=== PATIENT | female | born 1995 | race African-American/Black ===

== ENCOUNTER → 2017-02-20 01:22 | Emergency (ER) | payer BC, MEDICARE, MEDICAID ==
[~2017-02-20 01:22] MED LIST: Iohexol 300* (CONTRAST) 10 ML SDV IV ONE; Meperidine SYRINGE* 50 MG/ML ONE; Midazolam* 1 MG/ML 10 ML VIAL (10 MG) ONE; NS 0.9% 1000 ML* 1,000 ML BOLUS ONE; NS 0.9% 1000 ML* 1,000 ML IV ONE; Ondansetron INJ* 2 MG/ML VIAL IV ONE; Ondansetron INJ* 2 MG/ML VIAL ONE
[2017-02-20 05:22] LABS: Hematocrit 40 % (35-47); Mean Corpuscular HGB Conc 33 g/dl (31-36); Mean Corpuscular Hemoglobin 26 pg (27-31); Mean Corpuscular Volume 81 fL (80-97); Mean Platelet Volume 9 um3 (7.4-10.4); Red Blood Count 4.93 10^6/ul (4.0-5.4); Red Cell Distribution Width 15 % (10.5-15); White Blood Count 6.3 10^3/ul (3.5-10.8)
[2017-02-20 05:43] LABS: ALT 17 U/L (7-52); Alkaline Phosphatase 52 U/L (34-104); BUN/Creatinine Ratio 16.9 (8-20); Blood Urea Nitrogen 13 mg/dL (6-24); CO2 Carbon Dioxide 26 mmol/L (22-32); Calcium 9.3 mg/dL (8.6-10.3); Chloride 99 mmol/L (101-111); EGFR African American 119.5 (>60); EGFR Non-African American 92.9 (>60); Glucose 93 mg/dL (70-100); Sodium 134 mmol/L (133-145)
--- NOTE | 2017-02-20 08:18 | RAD ---
INDICATION: Abdominal pain. Diarrhea. Bloody stools. COMPARISON: None TECHNIQUE: Axial source images were obtained from the hemidiaphragms to the symphysis pubis following administration of oral and intravenous contrast. 150 mL Omnipaque 300 was utilized. Coronal and sagittal reconstructed images were acquired. Lung bases: The lung bases are clear. Liver: The liver is normal in size. There are no masses. There is no ductal dilatation. Gallbladder: There are no calcified gallstones. There is no evidence of wall thickening or pericholecystic fluid. Spleen: The spleen is normal in size. There are no masses. Pancreas: There is no focal pancreatic mass or ductal dilatation. Adrenal glands: There is no evidence of adrenal mass. Kidneys: The kidneys are normal in size and position. There are prompt nephrograms and there is prompt excretion bilaterally. There are no renal parenchymal masses. There is no evidence of nephrolithiasis. Adenopathy: There is no evidence of adenopathy by size criteria but there there is mild lymph node prominence in the right lower quadrant which likely reflects reactive nodes. Fluid collections: There are no free or localized fluid collections. Vessels:There are no significant atherosclerotic changes involving the aorta. There is no focal aneurysm. The iliac vessels are normal in caliber. The IVC appears normal. GI tract: The upper GI tract is unremarkable. There is mild haustral thickening along the descending colon and there is mild mucosal edema about the rectum and distal sigmoid colon suggestive of colitis. The appendix is normal. Pelvic organs: The uterus and adnexa appear normal Bladder: There are no bladder masses. Abdominal and pelvic soft tissues: Small periumbilical hernia containing fat. Osseous structures: There are no acute osseous findings. Other: None IMPRESSION: CT FINDINGS SUGGEST THE POSSIBILITY OF A COLITIS. NO OBSTRUCTION OR PERFORATION.
--- NOTE | 2017-02-20 09:09 | ED ---
Amanda Masters Rebecca, scribed for Maribeth Moya MD on 02/20/17 at 0327 . Abdominal Pain/Female - HPI Summary HPI Summary: Pt is a 21 y/o F who presents to the ED accompanied by her mother with a CC of abd pain. Pain began today at 0000 and have been constant since onset. Pain is in the lower abdomen (RLQ and LLQ), characterized as cramping and is currently mild (note: on triage, pt ranked 7/10, on evaluation, pt reported pain as mild) . Sx aggravated and alleviated by nothing. Additionally c/o intermittent diarrhea, bloating and nausea for 6 weeks. 4 days ago, pt additionally experienced constipation for 3 days, which was resolved by a home enema. Additionally c/o diarrhea with blood at 2330 last night that was blood mixed with stool, but is now just blood. Has had 3 episodes of bloody diarrhea. Denies vomiting. Recently was on 2 rounds of Abx - one for an ear infection and the other for a sinus infection. The last antibiotic was 2 weeks ago. Mother notes a recent dietary change to a diet with more fiber than she previously consumed. Last ate at 2030 which was Syed noodles. Foundry Technician is Dr. Jones at [facility]. LNMP 02/13/2017. Pt has hx of lupus and rheumatoid arthritis, is on methotrexate and plaquenil and has taken large doses of NSAIDS. - History of Current Complaint Chief Complaint: EDAbdPain Stated Complaint: BLOODY STOOL Time Seen by Provider: 02/20/17 03:14 Hx Obtained From: Patient, Family/Commissioned Security Officer - mother Hx Last Menstrual Period: 02/13/2017 ?: No Onset/Duration: Sudden Onset, Still Present Timing: Constant Severity Initially: Moderate Severity Currently: Mild Pain Intensity: 3 Pain Scale Used: 0-10 Numeric Location: Discrete At: RLQ, Discrete At: LLQ Radiates: No Character: Cramping Aggravating Factor(s): Nothing Alleviating Factor(s): Nothing Associated Signs and Symptoms: Positive: Constipation, Blood in Stool, Nausea, Diarrhea, Other: - Abdominal bloating. Negative: Vomiting Allergies/Adverse Reactions: Allergies Allergy/AdvReac Type Severity Reaction Status Date / Time Shellfish Allergy Allergy Rash And Verified 02/20/17 03:37 Itching Sulfa Antibiotics Allergy Hives Verified 02/20/17 03:37 Home Medications: Home Medications Hydroxychloroquine TAB* [Plaquenil TAB*] 200 mg PO BID 02/20/17 [History Confirmed 02/20/17] Methotrexate TAB* 20 mg PO Q7D 02/20/17 [History Confirmed 02/20/17] Multiple Vitamins W/ Minerals [Multivitamin Adults] 1 tab PO DAILY 02/20/17 [ History Confirmed 02/20/17] PMH/Surg Hx/FS Hx/Imm Hx Previously Healthy: No Endocrine/Hematology History: Reports: Hx Systemic Lupus Erythematosus Cardiovascular History: Denies: Hx Pacemaker/ICD Musculoskeletal History: Reports: Hx Rheumatoid Arthritis Infectious Disease History: No Infectious Disease History: Denies: History Other Infectious Disease, Traveled Outside the [place] in Last 30 Days - Family History Known Family History: Positive: Other - lupus and RA in mother Family History: mother with Lupus/RA - Social History Lives: With Family Alcohol Use: Rare Substance Use Type: Reports: None Smoking Status (MU): Never Smoked Tobacco Review of Systems Constitutional: Negative Cardiovascular: Negative Respiratory: Negative Positive: Abdominal Pain - RLQ and LLQ, Diarrhea, Nausea, Other - 3 episodes of bloody diarrhea; abdominal bloating. Negative: Vomiting Positive: other - constipation (resolved) Musculoskeletal: Negative Skin: Negative Neurological: Negative Psychological: Normal All Other Systems Reviewed And Are Negative: Yes Physical Exam - Summary Physical Exam Summary: Rectal exam findings: One small external hemorrhoid without pain to palpation. Bright red blood and minimal stool in the rectum. Triage Information Reviewed: Yes Vital Signs On Initial Exam: Initial Vitals Temp Pulse Resp BP Pulse Ox 98 F 87 18 132/84 100 02/20/17 01:28 02/20/17 01:28 02/20/17 01:28 02/20/17 01:28 02/20/17 01:28 Vital Signs Reviewed: Yes Appearance: Positive: Ill-Appearing - Mild, Pain Distress, Obese Skin: Positive: Warm, Skin Color Reflects Adequate Perfusion, Dry Eyes: Positive: Conjunctiva Clear ENT: Positive: Normal ENT inspection Neck: Positive: Supple Respiratory/Lung Sounds: Positive: Clear to Auscultation, Breath Sounds Present , Other - No respiratory distress Cardiovascular: Positive: RRR, Other - Brisk capillary refill, pulses normal. Negative: Murmur Abdomen Description: Positive: Nontender, No Organomegaly, Soft. Negative: Bruit, CVA Tenderness (R), CVA Tenderness (L), Distended, Guarding, Hernia @, McBurney's Point Tenderness, Peritoneal Signs, Pulsatile Mass Musculoskeletal: Positive: Strength/ROM Intact. Negative: Edema Left, Edema Right Neurological: Positive: Alert, Oriented to Person Place, Time, Other - Muscle tone normal. Negative: Facial Droop, Focal Deficit @, Slurred Speech Psychiatric: Positive: Normal Diagnostics - Vital Signs Vital Signs Temp Pulse Resp BP Pulse Ox 02/20/17 01:28 98 F 87 18 132/84 100 - Laboratory Lab Results: Lab Results 02/20/17 02/20/17 02/20/17 Range/Units 05:00 05:00 05:00 WBC 6.3 (3.5-10.8) 10^3/ul RBC 4.93 (4.0-5.4) 10^6/ul Hgb 13.0 (12.0-16.0) g/dl Hct 40 (35-47) % MCV 81 (80-97) fL MCH 26 L (27-31) pg MCHC 33 (31-36) g/dl RDW 15 (10.5-15) % Plt Count 236 (150-450) 10^3/ul MPV 9 (7.4-10.4) um3 Neut % (Auto) 51.1 (38-83) % Lymph % (Auto) 35.8 (25-47) % [place] % (Auto) 11.1 H (1-9) % Eos % (Auto) 1.1 (0-6) % Baso % (Auto) 0.9 (0-2) % Absolute Neuts (auto) 3.2 (1.5-7.7) 10^3/ul Absolute Lymphs (auto) 2.3 (1.0-4.8) 10^3/ul Absolute Monos (auto) 0.7 (0-0.8) 10^3/ul Absolute Eos (auto) 0.1 (0-0.6) 10^3/ul Absolute Basos (auto) 0.1 (0-0.2) 10^3/ul Absolute Nucleated RBC 0 10^3/ul Nucleated RBC % 0 INR (Anticoag Therapy) 1.05 (0.89-1.11) APTT 31.3 (26.0-36.3) seconds Sodium (133-145) mmol/L Potassium Chloride (101-111) mmol/L Carbon Dioxide (22-32) mmol/L Anion Gap BUN (6-24) mg/dL Creatinine (0.51-0.95) mg/dL Est GFR ( Amer) (>60) Est GFR (Non-Af Amer) (>60) BUN/Creatinine Ratio (8-20) Glucose (70-100) mg/dL Calcium (8.6-10.3) mg/dL Total Bilirubin (0.2-1.0) mg/dL AST ALT (7-52) U/L Alkaline Phosphatase (34-104) U/L Total Protein (6.4-8.9) g/dL Albumin (3.2-5.2) g/dL Globulin (2-4) g/dL Albumin/Globulin Ratio (1-3) Blood Type A Positive Antibody Screen Negative 02/20/17 Range/Units 05:00 WBC (3.5-10.8) 10^3/ul RBC (4.0-5.4) 10^6/ul Hgb (12.0-16.0) g/dl Hct (35-47) % MCV (80-97) fL MCH (27-31) pg MCHC (31-36) g/dl RDW (10.5-15) % Plt Count (150-450) 10^3/ul MPV (7.4-10.4) um3 Neut % (Auto) (38-83) % Lymph % (Auto) (25-47) % [place] % (Auto) (1-9) % Eos % (Auto) (0-6) % Baso % (Auto) (0-2) % Absolute Neuts (auto) (1.5-7.7) 10^3/ul Absolute Lymphs (auto) (1.0-4.8) 10^3/ul Absolute Monos (auto) (0-0.8) 10^3/ul Absolute Eos (auto) (0-0.6) 10^3/ul Absolute Basos (auto) (0-0.2) 10^3/ul Absolute Nucleated RBC 10^3/ul Nucleated RBC % INR (Anticoag Therapy) (0.89-1.11) APTT (26.0-36.3) seconds Sodium 134 (133-145) mmol/L Potassium TNP Chloride 99 L (101-111) mmol/L Carbon Dioxide 26 (22-32) mmol/L Anion Gap TNP BUN 13 (6-24) mg/dL Creatinine 0.77 (0.51-0.95) mg/dL Est GFR ( Amer) 119.5 (>60) Est GFR (Non-Af Amer) 92.9 (>60) BUN/Creatinine Ratio 16.9 (8-20) Glucose 93 (70-100) mg/dL Calcium 9.3 (8.6-10.3) mg/dL Total Bilirubin 0.40 (0.2-1.0) mg/dL AST TNP ALT 17 (7-52) U/L Alkaline Phosphatase 52 (34-104) U/L Total Protein 8.0 (6.4-8.9) g/dL Albumin 4.0 (3.2-5.2) g/dL Globulin 4.0 (2-4) g/dL Albumin/Globulin Ratio 1.0 (1-3) Blood Type Antibody Screen Result Diagrams: 02/20/17 05:00 02/20/17 05:00 Lab Statement: Any lab studies that have been ordered have been reviewed, and results considered in the medical decision making process. Abdominal Pain Fem Course/Dx - Course Course Of Treatment: Pt is a 21 y/o F, accompanied by her mother, c/o lower abdominal pain since 0000 and 3 episodes of diarrhea with blood since 2330. Additionally c/o intermittent diarrhea, bloating and nausea for the past 6 weeks with a 3 day stint of constipation recently, relieved by a home enema. Notes 2 recent courses of Abx, with the last dose being 2 weeks ago. Pt's hx is complicated by immunosuppression for her RA and lupus. Pt medications reviewed this visit. Allergies noted. Pt will be signed out to Dr. Ramirez, pending dispo, awaiting CT Abd/pel read. - Diagnoses Differential Diagnosis: Positive: Bowel Obstruction, Constipation, Diverticulitis, Hepatitis, Other - colitis, c diff colitis, infectious enteritis Provider Diagnoses: Bloody diarrhea, Abdominal pain Discharge - Discharge Plan Condition: Good Disposition: OTHER Discharge Disposition Comment: Pt will be signed out to Dr. Ramirez, pending dispo , awaiting CT Abd/Pel Referrals: Garfield Cintron MD [Primary Care Provider] - The documentation as recorded by the Amanda cage Rebecca accurately reflects the service I personally performed and the decisions made by me, Maribeth Moya MD.
[2017-02-20 11:25] LABS: C Reactive Protein 18.78 mg/L (< 5.00)
[2017-02-20 13:52] LABS: Erythrocyte Sed Rate 23 mm/Hr (0-14)
[2017-02-20 15:01] VITALS: BP 107/62
--- NOTE | 2017-02-20 17:54 | ED ---
Jono Masters Billy, scribed for Mickey Ramirez MD on 02/20/17 at 0804 . Progress - Progress Note Progress Note: Patient signed out by Dr. Moya at shift change. She is here in the ED for evaluation of bloody diarrhea. At time of evaluation, the patient states that she feels fine and denies any pain, nausea, or vomiting. P/E: VITAL SIGNS: Reviewed. GENERAL: Patient is an obese female who is lying comfortable in the stretcher. Patient is not in any acute respiratory distress. HEAD AND FACE: Normocephalic and atraumatic. EYES: PERRLA, EOMI x 2, No injected conjunctiva. EARS: Hearing grossly intact. Ear canals and tympanic membranes are WNL. MOUTH: Oropharynx within normal limits. NECK: Supple, trachea is midline, no adenopathy, no JVD. CHEST: Symmetric, no tenderness at palpation LUNGS: Clear to auscultation bilaterally. No wheezing or crackles. CVS: RRR,, S1 and S2 present, no murmurs or gallops appreciated. ABDOMEN: Soft, non-tender. No signs of distention. Positive bowel sounds. No rebound no guarding, and no masses palpated. No abdominal bruit or pulsations. EXTREMITIES: FROM in all major joints, no edema, no cyanosis or clubbing. NEURO: Alert and oriented x 3. No acute neurological deficits. Speech is normal. SKIN: Dry and warm - Results/Orders Results/Orders: CT ABD/PEL: CT FINDINGS SUGGEST THE POSSIBILITY OF A COLITIS. NO OBSTRUCTION OR PERFORATION. Re-Evaluation - Re-Evaluation First Eval Re-Evaluation Time: 07:46 Change: Improved Comment: No pain, nausea, or vomiting. Second Eval Re-Evaluation Time: 09:43 Course/Dx - Course Course Of Treatment: She is here in the ED for evaluation of bloody diarrhea. At time of evaluation, the patient states that she feels fine and denies any pain, nausea, or vomiting. This patient was signed out by Dr. Moya to follow up with the CT of the abd/pel, which suggested the possibility of colitis. At that time, I discussed the case with Dr. Friedman who recommended to keep the patient in the ED until he could perform the sigmoidoscopy. That was done, and after the sigmoidoscopy, the patient wad discharged to follow up with him at his office. She is A&Ox3, hemodynamically stable. - Diagnoses Provider Diagnoses: Bloody diarrhea, Abdominal pain, Colitis - Provider Notifications Discussed Care Of Patient With: Dr. Friedman (GI) at 0940: he will see the patient in the ED at around [phone]. Discharge - Discharge Plan Condition: Stable Disposition: HOME Patient Education Materials: Colitis (ED) Referrals: Garfield Cintron MD [Primary Care Provider] - The documentation as recorded by the Jono cage Billy accurately reflects the service I personally performed and the decisions made by me, Mickey Ramirez MD.
--- NOTE | 2017-02-20 23:32 | CONS ---
Gastroenterology Consult DATE: 02/20/17 - EMERGENCY DEPT CONSULTING PHYSICIAN: Maribeth Moya, [facility] [place] room. REASON FOR CONSULTATION: Bowel habit irregularity and then bleeding noted last night with CT scan interpreted as showing colonic thickening involving many areas including the sigmoid and rectum. 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 She would have intermittent diarrhea and be normal in between. She had been changing her diet towards eating more salads to try to lose weight. She has had some success, but is unsure how much. There is a little bit more diarrhea a week ago, but then she had 3 days where she did not go at all and she purchased some MiraLAX and also suppository. After the suppository, she had a normal stool the next day and that was on 02/18/17. Three days of not going at all were the end of last week. Then, yesterday evening, she began having more crampy lower abdominal discomfort. It was symmetric and then, she had a bowel movement with some blood around 11:30 p.m. She contacted her mother and was brought to the emergency room around 1:20 a.m. Since arrival in the emergency room, she has had another stool that had less blood, but at the time of my exam, she had not gone for about 5 hours. She also described her symptoms over the last month or two as including bloating and nausea. 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 She is not noted on any GI medications. PAST MEDICAL HISTORY: 1. Juvenile rheumatoid arthritis with lupus crossover - she is followed by Dr. Yolanda Jones at [facility] who she saw first at age 16 and fairly soon was placed on methotrexate and she also takes hydroxychloroquine. At one point, there was question of left leg pain and although per her report, DVT was not found on an ultrasound. Studies were done and she is said to have antiphospholipid antibody syndrome. There has been no definite blood clot anywhere else. She has a followup appointment with Dr. Jones in 6 days. 2. Morbid obesity. MEDICATIONS: She currently takes Mobic daily at , hydroxychloroquine, methotrexate 20 mg weekly, multivitamin with minerals, and aspirin 81 mg. ALLERGIES: She is allergic to SHELLFISH and SULFA ANTIBIOTICS. SOCIAL HISTORY: She was born and raised in [facility], attending [employer]. Her mother is disabled, wheelchair confined. She goes to [employer] though is not slated to graduate this month. REVIEW OF SYSTEMS: No history of syncope, valvular disease, TB, opportunistic infections, hepatitis, jaundice, or colitis. No history of gynecologic problems. Hepatitis C antibody was negative in 2014 and QuantiFERON gold and tuberculosis test negative in 2011. Syphilis IgG antibody negative, January 2015. PHYSICAL EXAM: She is a very substantially overweight dark complected young woman, in no overt distress at this time. She is a little tired having been up all night. HEENT exam is unremarkable. She has no adenopathy. Her lungs are clear and heart sounds are normal. Breast and pelvic exams are deferred. The abdomen is obese and symmetric with normal bowel sounds. It is soft and without focal tenderness. Perianal inspection and rectal are normal with no mucus or fluids obtained. Extremities are symmetric, obese, and without warmth. Neurologic is nonfocal. DIAGNOSTIC STUDIES/LAB DATA: Hemoglobin 13.0, hematocrit 40, MCV 81, white count 6.3, and platelets 236. The MCV has slowly drifted down over the last 5 years from 84 to 86 to current 81. Sed rate is 23, quite in line with previous results. CRP 18.78, slightly higher than a few recent values at 14 and 12. Stool occult blood today at 4 a.m. negative. Stool cultures pending. IMPRESSION: This 21-year-old young woman being treated for rheumatologic illness over 5 years on methotrexate had a history over a month or possibly a little more sounding fairly typical for a functional bowel issue as there was no new alarm symptom as she was having a generalized lower discomfort and intermittent diarrhea. The occurrence of 3 days running without a bowel movement at all pretty much cinches irritable bowel syndrome as being part of her clinical picture. The fact that she saw blood last night would be most likely a functional effect of a cycling of irritable bowel though course it does raise the issue of whether it could be a proctitis, a small polyp, or just some other random intercurrent illness. CT scan suggesting generalized thickening of the colon wall makes a little less comfortable to say this is functional disease based on clinical criteria alone. Sigmoidoscopy even though it is unprepped is likely to be quite helpful and is planned. If generally intact normal rectosigmoid mucosa is seen, a fiber supplement and p.r.n. MiraLAX will likely be used. Her mother asked whether her medications could be causing this and particular about her antiinflammatories. She has been on Mobic for a year and a half, so any idiosyncratic NSAID reaction is unlikely at this point. [id number]/[facility] #: [id number] [facility]
--- NOTE | 2017-02-21 04:16 | PRO ---
DATE: 02/20/17 - EMERGENCY DEPT REFERRING PHYSICIANS: Maribeth Moya ; Garfield Cintron * PROCEDURE: Flexible sigmoidoscopy to proximal sigmoid and biopsy of rectosigmoid erythema. 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 She had some urgency and lower abdominal pain and rectal bleeding last night. There has been no fever. See separate consult. Informed consent was obtained from the patient with her parents in the emergency room, room 19. CT scan had showed thickening of the bowel wall. ENDOSCOPIST: Dr Friedman MEDICATION: Midazolam 5, meperidine 50. FINDINGS: She is a substantially overweight young woman, in no overt distress. Perianal inspection shows no cutaneous abnormalities in the rectum. Digital rectal was normal. Initial views show intact rectal mucosa with no bleeding. The vascular pattern is evident. There is a little bit of splotchy erythema in the proximal rectum and rectosigmoid. There are no erosions and no aphthoid lesions. The changes are mild and nonspecific. The lower and mid rectum are normal. Formed stool is present in a nodular pattern. There is a fair amount in the rectum and rectosigmoid and then in the upper sigmoid, there is less and the tubular sigmoid is well seen. The mid upper sigmoid is entirely normal with no erythema and no abnormality whatsoever. On slow withdrawal, the distribution of the mild erythema from about 10 to 20 cm was re-confirmed. Three biopsies were taken for future reference. IMPRESSION: 1. Mild nonspecific rectosigmoid erythema. 2. Bowel habit changes - suggestive of irritable bowel syndrome and the presence of formed stool confirms that. She is asked to take psyllium 1 to 2 caplets a day and use MiraLAX (the patient had actually purchased it a week ago ) h.s. if she skips a day. The actual source of the bleeding is not entirely clear, but it was mild, it has only occurred once, and her CBC is normal. Most likely, small rectal vessels have been traumatized, although the erythema might have bled. There is clearly not any sign of proximal bleeding. 3. CT finding of thickened bowel - appears to be a false positive as clearly the formed and indeed firm and desiccated stool coming from above indicate fine physiologic functioning of the colon in general. Whether the patient could have a very minimal proctitis underlying her current situation is unclear. Most likely, it is a transient cause to the erythema. [id number]/[facility] #: [id number] [facility] HOSPITALIrma
--- NOTE | 2017-02-21 14:24 | ED ---
Progress - Progress Note Progress Note: Patient had a positive stool cCx for salmonella. UTD recommends tx with cipro 500 mg 2x day for 3-7 days for high risk patients. It is felt that this patient is a high risk because of the prolonged symptoms, bloody stools and her being treated with methotrexate for RA.. I contacted the patient at home, discussed results with her and mother, answered questions and patient agrees to be treated with Cipro 500 mg PO BID for 5 days. [facility] Re-Evaluation - Re-Evaluation First Eval Re-Evaluation Time: 07:46 Change: Improved Comment: No pain, nausea, or vomiting. Second Eval Re-Evaluation Time: 09:43 Course/Dx - Course Course Of Treatment: She is here in the ED for evaluation of bloody diarrhea. At time of evaluation, the patient states that she feels fine and denies any pain, nausea, or vomiting. This patient was signed out by Dr. Moya to follow up with the CT of the abd/pel, which suggested the possibility of colitis. At that time, I discussed the case with Dr. Friedman who recommended to keep the patient in the ED until he could perform the sigmoidoscopy. That was done, and after the sigmoidoscopy, the patient wad discharged to follow up with him at his office. She is A&Ox3, hemodynamically stable. - Diagnoses Provider Diagnoses: Bloody diarrhea, Abdominal pain, Colitis - Provider Notifications Discussed Care Of Patient With: Dr. Friedman (GI) at 0940: he will see the patient in the ED at around [phone].
== END | disposition home or self-care (01) ==
LOC: ED 01:22
DX: R10.9 Unspecified abdominal pain (principal); K52.9 Noninfective gastroenteritis and colitis, unspecified; K92.1 Melena
CPT/HCPCS: 36415; 74177; 80053; 82272; 85025; 85610; 85652; 85730; 86140; 86850; 86900; 86901; 87045; 87046; 87077; 87328; 87329; 87493; 87899; 88305; 99283; J2250; J2405; Q9967

== ENCOUNTER 2018-04-16 09:58 | Emergency (ER) | payer BC, MEDICARE, MEDICAID ==
[2018-04-16 10:48] VITALS: BP 143/86
--- NOTE | 2018-04-16 10:55 | UC ---
Throat Pain/Nasal Zhang HPI - History of Current Complaint Chief Complaint: UCGeneralIllness Stated Complaint: FEVER,CONGESTION,ST Time Seen by Provider: 04/16/18 10:50 Hx Obtained From: Patient - nasal congestion, sense of fullness in ears, sore throat Hx Last Menstrual Period: due now ?: No Onset/Duration: Lasting Days Severity: Mild Pain Intensity: 0 Associated Signs & Symptoms: Positive: Negative - Epiglottits Risk Factors Epiglottis Risk Factors: Negative - Allergies/Home Medications Allergies/Adverse Reactions: Allergies Allergy/AdvReac Type Severity Reaction Status Date / Time shellfish derived Allergy Intermediate Rash And Verified 04/16/18 10:48 Itching Sulfa (Sulfonamide Allergy Intermediate Hives Verified 04/16/18 10:48 Antibiotics) PMH/Surg Hx/FS Hx/Imm Hx Previously Healthy: No - hx. of lupus , on immunosuppresives - Surgical History Surgical History: None - Family History Known Family History: Positive: None, Other - lupus and RA in mother Family History: mother with Lupus/RA - Social History Alcohol Use: Rare Substance Use Type: None Smoking Status (MU): Never Smoked Tobacco - Immunization History Most Recent Influenza Vaccination: july 2016 Most Recent Tetanus Shot: utd Review of Systems Constitutional: Chills Skin: Negative Eyes: Negative ENT: Sore Throat, Ear Ache, Nasal Discharge Respiratory: Negative Cardiovascular: Negative Gastrointestinal: Negative Genitourinary: Negative Motor: Negative Neurovascular: Negative Musculoskeletal: Negative Neurological: Negative Psychological: Negative Is Patient Immunocompromised?: Yes All Other Systems Reviewed And Are Negative: Yes Physical Exam Triage Information Reviewed: Yes Appearance: Well-Appearing Vital Signs: Initial Vital Signs Temp 36.8 C 04/16/18 10:43 Pulse 69 04/16/18 10:43 Resp 18 04/16/18 10:43 BP 143/86 04/16/18 10:43 Pulse Ox 100 04/16/18 10:43 Vital Signs Reviewed: Yes Eye Exam: Normal Eyes: Positive: Conjunctiva Clear ENT Exam: Normal ENT: Positive: Normal ENT inspection Dental Exam: Normal Neck exam: Normal Respiratory Exam: Normal Respiratory: Positive: Chest non-tender Cardiovascular Exam: Normal Abdominal Exam: Normal Abdomen Description: Positive: Nontender Musculoskeletal Exam: Normal Neurological Exam: Normal Psychological Exam: Normal Throat Pain/Nasal Course/Dx - Differential Dx/Diagnosis Provider Diagnoses: URI Discharge - Sign-Out/Discharge Documenting (check all that apply): Patient Departure - Discharge Plan Condition: Good Disposition: HOME Referrals: Brianda Chavira MD [Primary Care Provider] - - Billing Disposition and Condition Condition: GOOD Disposition: Home
== END 2018-04-16 11:00 | disposition home or self-care (01) ==
LOC: UCCORT 09:58
DX: J06.9 Acute upper respiratory infection, unspecified (principal); Z88.2 Allergy status to sulfonamides
CPT/HCPCS: 99211; G0463

== ENCOUNTER 2019-09-25 15:26 | Emergency (ER) | payer BC, MEDICARE, MEDICAID ==
[2019-09-25 15:51] VITALS: BP 150/87
[2019-09-25 16:23] LABS: Influenza A Molecular NEGATIVE (Negative); Influenza B Molecular NEGATIVE (Negative)
--- NOTE | 2019-09-25 16:30 | UC ---
FLU HPI - HPI Summary HPI Summary: Flu-like symptoms with body aches, runny nose, no fever, no sore throat. Pt states because she is immune suppressed she usually gets an antibiotic. - History of Current Complaint Chief Complaint: UCRespiratory Stated Complaint: COUGH/FEVER/CHILLS/ACHY/NAUSEA Time Seen by Provider: 09/25/19 16:16 Hx Obtained From: Patient Hx Last Menstrual Period: 08/17/19 ?: No Onset/Duration: Gradual Onset Severity Currently: Mild Severity Initially: Mild Pain Intensity: 5 Associated Signs & Symptoms: Positive: Fever - Feels like she's had a fever at home but none documented, Myalgia, Nasal Congestion - Allergy/Home Medications Allergies/Adverse Reactions: Allergies Allergy/AdvReac Type Severity Reaction Status Date / Time shellfish derived Allergy Intermediate Rash And Verified 09/25/19 15:46 Itching Sulfa (Sulfonamide Allergy Intermediate Hives Verified 09/25/19 15:46 Antibiotics) Home Medications: Home Medications predniSONE TAB* [Deltasone 10 MG TAB*] 10 mg PO DAILY 09/25/19 [History Confirmed 09/25/19] PMH/Surg Hx/FS Hx/Imm Hx - Additional Past Medical History Additional PMH: hx lupus Previously Healthy: Yes - Surgical History Surgical History: None - Family History Known Family History: Positive: None, Other - lupus and RA in mother Family History: mother with Lupus/RA - Social History Lives: With Family Alcohol Use: Rare Substance Use Type: None Smoking Status (MU): Never Smoked Tobacco - Immunization History Most Recent Influenza Vaccination: july 2016 Most Recent Tetanus Shot: utd Review of Systems All Other Systems Reviewed And Are Negative: Yes Constitutional: Positive: Chills, Fatigue ENT: Positive: Nasal Discharge Musculoskeletal: Positive: Myalgia Is Patient Immunocompromised?: Yes - R/A, lupus Physical Exam Triage Information Reviewed: Yes Appearance: Well-Appearing, No Pain Distress, Well-Nourished Vital Signs: Initial Vital Signs Temp 98.6 F 09/25/19 15:47 Pulse 112 09/25/19 15:47 Resp 20 09/25/19 15:47 BP 150/87 09/25/19 15:47 Pulse Ox 100 09/25/19 15:47 Vital Signs Reviewed: Yes Eyes: Positive: Conjunctiva Clear ENT: Positive: Pharynx normal, Nasal congestion, Nasal drainage - Clear nasal coryza, TMs normal, Uvula midline. Negative: Tonsillar swelling, Trismus, Muffled voice, Hoarse voice, Sinus tenderness Neck: Positive: Supple, Nontender, No Lymphadenopathy Respiratory: Positive: Lungs clear, Normal breath sounds, No respiratory distress, No accessory muscle use Cardiovascular: Positive: No Murmur, Pulses Normal, Brisk Capillary Refill, Tachycardia Abdomen Description: Positive: Nontender, No Organomegaly, Soft. Negative: CVA Tenderness (R), CVA Tenderness (L), Distended, Guarding, Hepatomegaly, McBurney' s Point Tenderness, Splenomegaly Bowel Sounds: Positive: Present Musculoskeletal Exam: Normal Neurological Exam: Normal Psychological Exam: Normal Skin Exam: Normal Flu Course/Dx - Course Course Of Treatment: Rapid flu test: negative I believe this is a viral illness going throughout the community right now. I don't feel pt needs an antibiotic (which she requested), but should have follow up with her PCP in 1-2 days for a recheck. - Differential Dx/Diagnosis Provider Diagnosis: URI (upper respiratory infection) Discharge ED - Sign-Out/Discharge Documenting (check all that apply): Patient Departure All imaging exams completed and their final reports reviewed: No Studies - Discharge Plan Condition: Good Disposition: HOME Patient Education Materials: Upper Respiratory Infection (ED) Referrals: Brianda Chavira MD [Primary Care Provider] - Additional Instructions: Increase fluids, over the counter medicine as directed, follow up with your primary care provider in 2-3 days if no improvement or any other concerns - Billing Disposition and Condition Condition: GOOD Disposition: Home
--- NOTE | 2019-09-26 10:24 | UC ---
- Progress Note Progress Note: Patient called in today, requesting antibiotics. She was seen yesterday her flu test was negative. Since she cannot take pills , I will prescribe liquid amoxicillin to the pharmacy . RN to visiting the inform patient . Course/Dx - Diagnoses Provider Diagnoses: URI (upper respiratory infection) Discharge ED - Sign-Out/Discharge Documenting (check all that apply): Post-Discharge Follow Up All imaging exams completed and their final reports reviewed: No Studies - Discharge Plan Condition: Good Disposition: HOME Patient Education Materials: Upper Respiratory Infection (ED) Referrals: Brianda Chavira MD [Primary Care Provider] - Additional Instructions: Increase fluids, over the counter medicine as directed, follow up with your primary care provider in 2-3 days if no improvement or any other concerns - Billing Disposition and Condition Condition: GOOD Disposition: Home
--- NOTE | 2019-09-26 11:56 | UC ---
- Progress Note Progress Note: On her visit from yesterday, I heard a I-II/ systolic heart murmur. Pt has no history of this. I referred her to her PCP for further follow up. I explained to her it may be an innocent murmur, but because she has no history of one, she should follow up. She agreed with this plan of action. Course/Dx - Diagnoses Provider Diagnoses: URI (upper respiratory infection) Discharge ED - Sign-Out/Discharge Documenting (check all that apply): Post-Discharge Follow Up All imaging exams completed and their final reports reviewed: No Studies - Discharge Plan Condition: Good Disposition: HOME Prescriptions: Amoxicillin PO (*) [Amoxicillin 400 MG/5 ML SUSP*] 800 mg PO BID 10 Days #1 bottle Patient Education Materials: Upper Respiratory Infection (ED) Referrals: Brianda Chavira MD [Primary Care Provider] - Additional Instructions: Increase fluids, over the counter medicine as directed, follow up with your primary care provider in 2-3 days if no improvement or any other concerns - Billing Disposition and Condition Condition: GOOD Disposition: Home
== END 2019-09-25 16:36 | disposition home or self-care (01) ==
LOC: UCCORT 15:26
DX: J06.9 Acute upper respiratory infection, unspecified (principal); R68.83 Chills (without fever); R53.83 Other fatigue; Z91.013 Allergy to seafood; Z88.2 Allergy status to sulfonamides
CPT/HCPCS: 99211; G0463